=== PATIENT | male | born 1940 ===

== ENCOUNTER 2025-02-08 05:48 | Day surgery (SDC) | payer MEDICARE ==
[2025-02-08] VITALS (11 sets, daily range): BP systolic 119–140; BP diastolic 71–82; PULSE 60–74
[~2025-02-08] VITALS: Ht 170.2 cm; Wt 77.3 kg
[~2025-02-08 05:48] MED LIST: APIX5TAB PO; ASPIRIN 81 MG CHEWABLE TABLET ONE; BRIM5DRO9 OU; DORZ10DR10 OU; METF-1211 PO; METO-408 PO; SACU1TAB PO; SODIUM CHLORIDE 0.9% 1,000 ML ONE
[2025-02-08] MEDS ORDERED: SODIUM BICARBONATE 50 MEQ/50 ML VIAL ONE (06:42)
[2025-02-08] MEDS ORDERED: LIDOCAINE/PF 1% 30 ML VIAL ONE (06:42)
[2025-02-08] MEDS ORDERED: HEPARIN SODIUM 1000 UNITS/NS 1,000 ML ONE (06:42)
[2025-02-08] MEDS ORDERED: IOHEXOL 300 MG/ML 100 ML VIAL ONE (06:42)
[2025-02-08] MEDS: SODIUM CHLORIDE 0.9% 1,000 ML IV ONE (06:49)
[2025-02-08 06:50] LABS: CALCIUM, TOTAL 9.0 mg/dL (8.8-10.5); CREATININE 0.61 mg/dL (0.60-1.30); GLOMERULAR FILTR. RATE CALC > 60 mL/min (>60); GLUCOSE,RANDOM 132 mg/dL (70-110); SODIUM SERUM 136 mmol/L (136-145); UREA NITROGEN, BLOOD 13 mg/dL (7-18)
[2025-02-08] MEDS: ASPIRIN 81 MG CHEWABLE TABLET PO ONE (06:50)
[2025-02-08 06:53] LABS: CHOL/HDL RATIO 3.7 (4.2-7.3); LDL CHOL (CALC.) 105.0 mg/dL (0-130)
[2025-02-08 06:57] LABS: PLATELET COUNT (AUTO) 249 K/uL (150-450); RED BLOOD CELL COUNT(AUTO) 5.51 MIL/uL (4.50-5.90); RED CELL DISTRIBUTION WIDTH 15.3 % (11.5-14.5); WHITE BLOOD COUNT (AUTO) 7.5 K/uL (4.5-11.0)
[2025-02-08] MEDS ORDERED: FentaNYL CITRATE PF 100 MCG/2 ML VIAL ONE (07:31)
[2025-02-08] MEDS ORDERED: MIDAZOLAM HCL 2 MG/2 ML VIAL ONE (07:31)
[2025-02-08] MEDS ORDERED: METF-445 PO (07:34)
[2025-02-08] MEDS ORDERED: NITROGLYCERIN 50 MG/D5% WATER 250 ML ONE (08:02)
[2025-02-08] MEDS: IOHEXOL 300 MG/ML 100 ML VIAL ICOR ONE (08:21)
[2025-02-08] MEDS: LIDOCAINE 1% 30 ML/SOD BICARB 8.4% 4 ML SQ ONE (08:21)
[2025-02-08] MEDS: FentaNYL CITRATE PF 100 MCG/2 ML VIAL IVP ONE ×2 (08:22→09:30)
[2025-02-08] MEDS: MIDAZOLAM HCL 2 MG/2 ML VIAL IVP ONE (08:22)
[2025-02-08] MEDS: NITROGLYCERIN/D5W 50 MG/250 ML IV BOTTLE IARTER ONE (08:32)
[2025-02-08] MEDS ORDERED: SODIUM CHLORIDE 0.9% 1,000 ML IV ONE (09:15)
[2025-02-08] MEDS: HEPARIN SODIUM 1000 UNITS/NS 1,000 ML IARTER ONE (09:31)
[2025-02-08] MEDS ORDERED: SODIUM CHLORIDE 0.9% 1,000 ML ONE (10:07)
== END 2025-02-08 13:30 | disposition home or self-care (01) ==
LOC: CATHLAB 05:48
PROVIDERS: ATTEND Internal Medicine Interventional Cardiology
DX: I25.10 Atherosclerotic heart disease of native coronary artery without angina pectoris (principal); I25.2 Old myocardial infarction; R94.31 Abnormal electrocardiogram [ECG] [EKG]; I10 Essential (primary) hypertension; E11.9 Type 2 diabetes mellitus without complications; E78.5 Hyperlipidemia, unspecified; I48.91 Unspecified atrial fibrillation; I48.92 Unspecified atrial flutter; Z79.01 Long term (current) use of anticoagulants; Z79.84 Long term (current) use of oral hypoglycemic drugs; Z79.899 Other long term (current) drug therapy; Z98.890 Other specified postprocedural states
CPT/HCPCS: 93458; 80061; 99152; 99153; 80048; 83036; 85025; 85610; 85730; 36415; 93005; J3010; J1644; J3490 ×3; J2250; J7030; Q9967